=== PATIENT | female | born 1985 | race Caucasian/White ===

== ENCOUNTER 2017-02-19 16:10 | Emergency (ER) | payer MEDICAID ==
[~2017-02-19 16:10] MED LIST: IBUPROFEN800 MG PO; NORCO 5/325 TAB1 TAB PO; ORTHO TRI-7 DAYSX 3; PRENATAL1 EACH PO; PRENATAL1 TAB; PROTONIX40 MG PO; ZOLOFT100 MG PO
[2017-02-19] MEDS ORDERED: DILAUDID2 M1 PO (16:16)
[2017-02-19] MEDS ORDERED: AMOXICILLI400 MG/54 PO (16:17)
[2017-02-19] MEDS ORDERED: HYCET 7.5 MG-3473 M2 PO (16:18)
[2017-02-19] MEDS ORDERED: PHENERGAN12.5 M2 PR (16:19)
[2017-02-19] MEDS ORDERED: AMETHIA LO TAB1 EAC1 PO (16:19)
[2017-02-19] MEDS ORDERED: RIZATRIPTAN10 M3 PO (16:19)
[2017-02-19] MEDS ORDERED: COLACE100 M1 PO (16:20)
[2017-02-19] MEDS ORDERED: ZOLOFT100 M1 PO (16:20)
[2017-02-19] MEDS ORDERED: TOPAMAX50 M3 PO (16:20)
== END 2017-02-19 17:41 ==
LOC: EDMED 16:10
DX: J95.830 Postprocedural hemorrhage of a respiratory system organ or structure following a respiratory system procedure (principal)
CPT/HCPCS: J2270